=== PATIENT | female | born 1945 | race Caucasian/White ===

== ENCOUNTER 2021-04-21 13:00 | Emergency (ER) | payer MEDICARE, OTHER ==
[~2021-04-21 13:00] MED LIST: GLUCOTROL5 MG PO; HYPERTENSION MED; LEVOTHYROXIN0.025 MG PO; MEDROL DOSEPAK4 MG PO; NEURONTIN400 MG PO; ZANTAC 150150 MG PO; [UNRECOGNIZED DRUG - REMARK]
[2021-04-21 13:09] VITALS: BP 99/78
== END 2021-04-21 16:38 | disposition home or self-care (01) ==
LOC: ED 13:00
DX: S80.02XA Contusion of left knee, initial encounter (principal); M25.552 Pain in left hip; Z91.030 Bee allergy status; Z88.2 Allergy status to sulfonamides; Z91.048 Other nonmedicinal substance allergy status; Z88.1 Allergy status to other antibiotic agents; Z79.899 Other long term (current) drug therapy; Z90.49 Acquired absence of other specified parts of digestive tract; Z90.711 Acquired absence of uterus with remaining cervical stump; W01.0XXA Fall on same level from slipping, tripping and stumbling without subsequent striking against object, initial encounter; Y93.89 Activity, other specified; Y92.89 Other specified places as the place of occurrence of the external cause; Y99.8 Other external cause status

== ENCOUNTER 2023-05-07 17:51 | Emergency (ER) | payer MEDICARE, OTHER | END 2023-05-07 18:36 | disposition home or self-care (01) | LOC: ED | DX: L08.9 Local infection of the skin and subcutaneous tissue, unspecified (principal); Z91.030 Bee allergy status; Z88.2 Allergy status to sulfonamides; Z88.8 Allergy status to other drugs, medicaments and biological substances; Z90.49 Acquired absence of other specified parts of digestive tract; Z90.710 Acquired absence of both cervix and uterus; Z98.890 Other specified postprocedural states ==